=== PATIENT | male | born 1980 | race Caucasian/White ===

== ENCOUNTER 2023-06-18 08:21 | Emergency (ER) | payer SELFPAY ==
--- NOTE | ~2023-06-18 | CT_ITS ---
EXAMINATION: CT abdomen pelvis w con DATE: 06/18/2023 09:14 INDICATION: Right upper quadrant abdominal pain TECHNIQUE: Computed tomography (CT) of the abdomen and pelvis was performed with 100 mL Omnipaque-350 intravenous contrast. Automated exposure control and iterative reconstruction technique were employe d. The dose-length product was 1191.07 mGy-cm. COMPARISON: None FINDINGS: Lung bases are clear. Heart size is normal. No pericardial or pleural effusion. Liver, gallbladder, s pleen, bilateral adrenal glands are normal. Tiny dystrophic calcification at the head of the pancreas which could represent sequela of chronic pancreatitis. Pancreas otherwise unremarkable with no perip ancreatic stranding to suggest acute pancreatitis. Bilateral nonobstructing nephrolithiasis with 1-2 mm stone in the mid right kidney and 2 mm stone at a lower pole calyx of the left kidney. 4 mm right renal cyst. No ureteral stones or hydronephrosis. Bladder is normal. Postoperative change of prior ap pendectomy with surgical clips posterior to the tip of the cecum. Bowels are otherwise unremarkable w ith no obstruction. No free intraperitoneal gas or fluid. No pathologically enlarged abdominal or pel kiana lymphadenopathy. IMPRESSION: 1. No acute intra-abdominal/pelvic process. 2. Bilateral nonobstructing nephrolithiasis. 3. Punctate pancreatic calcification suggestion of chronic pancreatitis. No evident acute pancreatiti s but this can be radiographically occult and could correlate with lipase levels. Reviewed, dictated and finalized at location [facility] IMPRESSION: 1. No acute intra-abdominal/pelvic process. 2. Bilateral nonobstructing nephrolithiasis. 3. Punctate pancreatic calcification suggestion of chronic pancreatitis. No joe dent acute pancreatitis but this can be radiographically occult and could corre late with lipase levels.
[2023-06-18 08:25] VITALS: BP 149/88; PULSE 79; RESP 16; TEMP 36.8; O2SAT 100
--- NOTE | 2023-06-18 08:40 | ED.ABDPAIN ---
HPI - Abdominal Pain General Chief Complaint: Abdominal Pain Stated Complaint: N/v Time Seen by Provider: 06/18/23 08:27 History of Present Illness HPI narrative: This is a 43-year-old male with no significant past medical history, presents emergency department complaining abdominal pain for the past day. The patient states last night, he developed epigastric and right upper quadrant abdominal pain, described as dull, rated 7/10 without radiation. This is accompanied by 5 episodes of nonbloody vomiting and nonbloody loose stools. 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 Related Data Allergies Allergy/AdvReac Type Severity Reaction Status Date / Time No Known Allergies Allergy Verified 06/18/23 10:12 Review of Systems Review of Systems: CONSTITUTIONAL: Denies fever, chills, or sweats. CARDIOVASCULAR: Denies chest pain, palpitations, or edema. RESPIRATORY: Denies cough or dyspnea. GASTROINTESTINAL: Epigastric and right upper quadrant abdominal pain, nonbloody vomiting, nausea and nonbloody diarrhea GENITOURINARY: Denies dysuria or hematuria. SKIN: Denies rash or itching. MUSCULOSKELETAL: Denies back pain, joint pain, or myalgia. NEUROLOGIC: Denies headache, numbness, dizziness, or weakness. PSYCHIATRIC: Denies anxiety or depression. PMFSH Past Medical History Medical History No significant past medical history Surgical History Surgical History No significant past surgical history Social History Social History Smoking status: Current every day smoker Alcohol intake: never Substance use: never Exam Narrative: GENERAL: Well-developed, well-nourished, and in no acute distress. appears uncomfortable HEAD: Normocephalic, atraumatic. EYES: PERRLA and EOMI. CHEST: Clear to auscultation. No respiratory distress. No wheezes rales or rhonchi HEART: Regular rate and rhythm. No murmur heard. Normal peripheral pulses. ABDOMEN: Soft, tender palpation in the epigastrium and right upper quadrant without rebound or guarding, nondistended, normal active bowel sounds. EXTREMITIES: Normal range of motion. No edema. SKIN: Warm, dry, no rash. NEURO: Alert and oriented x3. No focal deficit. Moving all 4 limbs spontaneously PSYCH: Normal mood and affect. Course Course Emergency Course: 11:09 - CBC demonstrates a mildly elevated white blood cell count of 12.8 but is otherwise unremarkable. Chemistries demonstrate a mild hyponatremia with sodium of 134 but is otherwise unremarkable. Lipase within normal limits. UA not concerning for UTI. CT abdomen pelvis shows changes consistent with chronic pancreatitis but no other acute intra-abdominal process. After 2 doses of morphine and 1 IV dose of Toradol, the patient states his pain is improved. I suspect chronic pancreatitis versus gastroenteritis cause of symptoms. Will discharge with pain and nausea medications and recommendation for primary care follow-up. Discussed return and emergency precautions including signs/symptoms of Acute abdomen. The patient voiced understanding and is comfortable with the plan. All questions answered to his satisfaction. Vital Signs Vital signs: Vital Signs Temperature 98.3 F 06/18/23 08:25 Pulse Rate 79 06/18/23 08:25 Respiratory Rate 16 06/18/23 08:25 Blood Pressure 149/88 H 06/18/23 08:25 Pulse Oximetry 100 06/18/23 08:25 Oxygen Delivery Room Air 06/18/23 08:25 Temperature 97.9 F 06/18/23 11:03 Pulse Rate 82 06/18/23 11:03 Respiratory Rate 16 06/18/23 11:03 Blood Pressure 149/87 H 06/18/23 11:03 Pulse Oximetry 97 06/18/23 11:03 Oxygen Delivery Room Air 06/18/23 08:25 MDM - Abdominal Pain MDM Narrative Medical decision making narrative: plan: Labs, imaging, pain control, antiemetics, IV fluids, reassess
[2023-06-18] MEDS: SODIUM CHLORIDE 0.9% IV 2,000 ML 999 ML IV CONT (08:42)
[2023-06-18] MEDS: MORPHINE SULFATE (*CRX) 4 MG/ML INJ IV PUSH ×2 (08:43→10:21)
[2023-06-18] MEDS: ONDANSETRON INJ 4 MG/2 ML VIAL IV PUSH (08:43)
[2023-06-18 08:51] LABS: Lactic Acid Reflex 1.5 mmol/L (0.7-2.0)
[2023-06-18 08:52] LABS: Alanine Aminotransferase 41 U/L (6-50); Albumin Level 4.4 g/dL (3.5-5.1); Alkaline Phosphatase 72 U/L (38-126); Anion Gap 4 mmol/L (8-16); Aspartate Amino Transferase 38 U/L (17-59); Basophils Absolute Auto 0.1 K/mm3 (0.0-0.1); Basophils Percent Auto 0.5 % (0.2-1.2); Bilirubin,Total 0.7 mg/dL (0.2-1.3); Blood Urea Nitrogen 12 mg/dL (9-20); Calcium 9.4 mg/dL (8.4-10.2); Carbon Dioxide 28 mmol/L (22-30); Chloride 102 mmol/L (98-107); Eosinophils Absolute Auto 0.2 K/mm3 (0-0.3); Eosinophils Percent Auto 1.5 % (0-4.4); Estimated CRCL calculation 104 ml/min; Estimated Glomerular Filt Rate > 60; Glucose 133 mg/dL (65-110); Hematocrit 49.9 % (42.0-52.0); Hemoglobin 16.7 g/dL (14.0-18.0); Immature Granulocyte Absolute 0.05 K/mm3 (0.00-0.031); Immature Granulocyte Percent A 0.4 % (0-0.5); Lipase 75 U/L (23-300); Lymphocytes Absolute Auto 1.28 K/mm3 (0.9-3.2); Mean Corpuscular HGB Conc 33.5 g/dl (32-36); Mean Corpuscular Hemoglobin 30.5 pg (26-34); Mean Corpuscular Volume 91.2 fl (80-100); Mean Platelet Volume 10.5 fl (7.4-10.4); Monocytes Absolute Auto 0.6 K/mm3 (0.1-0.6); Monocytes Percent Auto 4.7 % (2.6-8.5); Neutrophils Absolute Auto 10.6 K/mm3 (1.3-6.7); Neutrophils Percent Auto 82.9 % (45.5-73.1); Platelet Count Result 358 k/mm3 (150-375); Potassium 4.7 mmol/L (3.4-5.0); Red Blood Count 5.47 M/mm3 (4.6-6.20); Red Cell Distribution Width 13.1 % (11.5-14.5); Sodium 134 mmol/L (137-145); White Blood Count 12.8 K/mm3 (4.5-10.0)
[2023-06-18 08:53] LABS: Appearance Urine Clear (Clear); Bilirubin Urine Negative (Negative); Blood Urine Negative (Negative); Color Urine Yellow (Yellow); Glucose Urine UA Negative (Negative); Ketones Urine Trace mg/dL (Negative); Leukocyte Esterase Ur Negative LEU/UL (Negative); Nitrate Urine Negative (Negative); Protein Urine Negative (Negative); Specific Grav Ur 1.028 (1.001-1.035)
[2023-06-18 09:05] LABS: Add Urine Microscopic? NO
[2023-06-18 09:30] VITALS: BP 148/90; PULSE 90; RESP 16; TEMP 36.6; O2SAT 98
[2023-06-18 10:21] VITALS: BP 143/80; PULSE 88; RESP 16; TEMP 36.7; O2SAT 99
[2023-06-18] MEDS: KETOROLAC 30 MG/ML VIAL (*BKC) IV PUSH (10:22)
[2023-06-18 11:03] VITALS: BP 149/87; PULSE 82; RESP 16; TEMP 36.6; O2SAT 97
== END 2023-06-18 11:23 | disposition home or self-care (01) ==
PROVIDERS: Emergency Provider Preventive Medicine Aerospace Medicine
DX: K86.1 Other chronic pancreatitis (principal); F17.200 Nicotine dependence, unspecified, uncomplicated; N20.0 Calculus of kidney
CPT/HCPCS: 36415; 74177; 80053; 81003; 83605; 83690; 85025; 96361; 96374; 96375; 96376; 99284; J1885; J2270; J2405; J7030; Q9967